=== PATIENT | male | born 1995 | race African-American/Black ===

== ENCOUNTER 2017-12-29 23:30 | Emergency (ER) | payer MEDICAID, SELFPAY ==
[2017-12-29 23:34] VITALS: BP 157/90; PULSE 63; RESP 16; TEMP 37
--- NOTE | 2017-12-30 00:11 | ED.GENADUL ---
Disposition Clinical Impression: Rupture of right Achilles tendon Disposition: HOME Condition: Good Instructions: Splint Care (ED), Crutch Instructions (ED), Achilles Tendon Rupture (ED) Additional Instructions: Leave the splint on until you follow-up with orthopedics. Keep the leg elevated and apply ice. Use Motrin for pain. Do not bear weight on your leg, use crutches. Return to ED for worsening pain, numbness to the foot, other concerns. Prescriptions: Ibuprofen [Motrin] 600 mg PO TID PRN #20 tab PRN Reason: Referrals: [facility] [Provider Group] Medical Decision Making - Medical Decision Making Patient here with pain in the right calf status post basketball injury. He has a positive [place] test suggesting Achilles tendon rupture. His pain is in the proximal tendon. He is neurovascularly intact. He is placed in a posterior splint with some plantarflexion so as to take tension off the Achilles tendon. He is given Motrin for pain. He will be made nonweightbearing and put on crutches. Will refer him to orthopedics for follow-up this week. History of Present Illness - General Chief complaint: Orthopedic Stated complaint: UNKNOWN Time Seen by Provider: 12/30/17 00:11 Source: patient Mode of arrival: wheelchair Limitations: no limitations - History of Present Illness Initial comments: Patient presents to ED with complaints of right calf pain. Patient was playing basketball, planted and turned to run back up court when he felt a pop in the back of his right leg. He has had pain since. He is not able to really ambulate. He cannot really plantarflex that well. Denies any other injury. He has no ankle or knee pain. Presents now for evaluation. - Related Data Ibuprofen [Motrin] 600 mg PO TID PRN #20 tab 12/30/17 Allergies Allergy/AdvReac Type Severity Reaction Status Date / Time No Known Allergies Allergy Unverified 09/03/16 00:14 Review of Systems Musculoskeletal: myalgia. denies: joint swelling, arthralgia Neurological: denies: weakness, numbness, paresthesias Past Medical History - Past Medical History Medical history: no medical history Surgical history: no surgical history - Social History Alcohol use: none Drug use: none General Exam - General Limitations: no limitations General appearance: alert, in no apparent distress - Head Head exam: Present: atraumatic, normocephalic - Eye Eye exam: Present: normal apperance - Extremities Exam Extremities exam: Present: other (There is no bony tenderness to the right lower extremity. There is tenderness to palpation in the proximal Achilles tendon on the right. There is a positive [place] test on the right. He is neurovascularly intact distally.) - Neurological Exam Neurological exam: Present: alert, oriented X3, CN II-XII intact. Absent: motor sensory deficit - Skin Skin exam: Present: warm, dry, intact Course Vital Signs - 24 hr 12/29/17 23:34 Temperature 98.6 F Pulse 63 Respiratory 16 Rate Blood Pressure 157/90 Procedures - Orthopedic Splinting/Casting Injury #1 Side: right Lower Extremity Injury Location: lower leg Lower Extremity Immobilizer: posterior splint Other Orthopedic Equipment: crutches
[2017-12-30] MEDS: Ibuprofen 600 MG TAB PO (00:17)
== END 2017-12-30 00:22 | disposition home or self-care (01) ==
LOC: ER 06-29 04:28
PROVIDERS: Emergency Provider Emergency Medicine
DX: S86.011A Strain of right Achilles tendon, initial encounter (principal); X50.9XXA Other and unspecified overexertion or strenuous movements or postures, initial encounter; Y93.67 Activity, basketball
CPT/HCPCS: 29515; 99283; E0114

== ENCOUNTER 2018-02-21 00:41 | Outpatient (CLI) | payer MEDICAID, SELFPAY ==
--- NOTE | 2018-02-21 10:57 | DI.MRI_ITS ---
SYMPTOM/DIAGNOSIS: RT ACHILLES TENDON TEAR, S86.0, S/P BB INJURY RIGHT ANKLE MRI: Comparison is made with 12/31/17 from the [facility]. T 1 and fat suppressed T 2 sagittal, proton density and T 2 3D sagittal, T 1 and fat suppressed T 2 coronal and axial sequences were performed. The exam is limited similar to the previous exam in that the distal Gastrocnemius muscle and proximal tendon are not fully included on the exam. There are small metallic densities in the region of the distal Gastrocnemius muscle and upper Achilles tendon consistent with patient's history of prior surgery. There is a similar appearance to the Achilles tendon, with thickening distally and retraction of the tendon distally , consistent with a full thickness tear. A small amount of fluid is seen within the tendon sheath. The amount of edema is much less than on the previous exam. The marrow signal is normal. No talar dome defects are seen. No additional tendon tears are identified. IMPRESSION: The findings are consistent with a full thickness tear of the Achilles tendon with retraction status post repair.
== END 2018-02-21 01:01 ==
PROVIDERS: Visit Provider Physician Assistant
DX: S86.001A Unspecified injury of right Achilles tendon, initial encounter (principal); Z98.890 Other specified postprocedural states
CPT/HCPCS: 73721